=== PATIENT | male | born 1955 | race Two or more races ===

== ENCOUNTER → 2016-10-06 | Outpatient (CLI) | payer OTHER | LOC: BRMIMAGING 15:10 | PROVIDERS: ATTEND Specialist | DX: M25.551 Pain in right hip (principal); X50.0XXA Overexertion from strenuous movement or load, initial encounter | CPT/HCPCS: 73502-PO ==

== ENCOUNTER → 2016-10-09 | Outpatient (CLI) | payer OTHER | LOC: BRMIMAGING 13:41 | DX: M54.2 Cervicalgia (principal); M50.30 Other cervical disc degeneration, unspecified cervical region | CPT/HCPCS: 72040-PO ==

== ENCOUNTER → 2016-10-27 | Outpatient (CLI) | payer OTHER | LOC: BRMIMAGING 15:33 | PROVIDERS: ATTEND Internal Medicine | DX: M54.2 Cervicalgia (principal) | CPT/HCPCS: 72040-PO ==